=== PATIENT | male | born 1985 | race Caucasian/White ===

== ENCOUNTER 2016-09-13 11:40 | Emergency (ER) | payer SELFPAY ==
[2016-09-13 11:50] VITALS: BP 118/62
--- NOTE | 2016-09-13 13:10 | ED ---
Medical Screening - HPI Summary HPI Summary: Patient is going into in treatment rehab for drug use at [facility]. He is here for pre-admission labs. He has not physical complaints. - History of Current Complaint Chief Complaint: EDGeneral Stated Complaint: NEEDS BLOODWORK Time Seen by Provider: 09/13/16 11:57 Associated Signs and Symptoms: Negative PMH/Surg Hx/FS Hx/Imm Hx Endocrine/Hematology History: Denies: Hx Diabetes, Hx Thyroid Disease Cardiovascular History: Denies: Hx Hypertension Respiratory History: Denies: Hx Asthma, Hx Chronic Obstructive Pulmonary Disease (COPD) GI History: Denies: Hx Ulcer Psychiatric History: Reports: Hx Substance Abuse Denies: Hx Eating Disorder - Surgical History Surgery Procedure, Year, and Place: tonsillectomy. wisdom teeth pulled - Immunization History Date of Tetanus Vaccine: 8 years ago per patient Infectious Disease History: No Infectious Disease History: Denies: Hx Clostridium Difficile, Hx Hepatitis, Hx Human Immunodeficiency Virus (HIV), Hx of Known/Suspected MRSA, Hx Shingles, Hx Tuberculosis, Traveled Outside the in Last 30 Days - Social History Occupation: Unemployed Lives: With Family Alcohol Use: None Substance Use Type: Reports: Marijuana, Prescribed Smoking Status (MU): Current Some Day Smoker Type: Cigarettes Amount Used/How Often: 1/4 ppd Cessation Counseling: Patient Advised to Stop Review of Systems All Other Systems Reviewed And Are Negative: Yes Physical Exam Triage Information Reviewed: Yes Vital Signs On Initial Exam: Initial Vitals Temp Pulse Resp BP Pulse Ox 98.4 F 63 20 118/62 100 09/13/16 11:47 09/13/16 11:47 09/13/16 11:47 09/13/16 11:47 09/13/16 11:47 Vital Signs Reviewed: Yes Appearance: Positive: Well-Appearing, No Pain Distress, Well-Nourished Skin: Positive: Warm, Skin Color Reflects Adequate Perfusion, Dry, Soft Head/Face: Positive: Normal Head/Face Inspection Eyes: Positive: EOMI, SUSIE, Conjunctiva Clear ENT: Positive: Hearing grossly normal Respiratory/Lung Sounds: Positive: Breath Sounds Present Cardiovascular: Positive: RRR Musculoskeletal: Negative: Edema Left, Edema Right Neurological: Positive: Sensory/Motor Intact, Alert, Oriented to Person Place, Time, Normal Gait Psychiatric: Positive: Affect/Mood Appropriate AVPU Assessment: Alert Diagnostics - Vital Signs Vital Signs Temp Pulse Resp BP Pulse Ox 09/13/16 11:47 98.4 F 63 20 118/62 100 - Laboratory Lab Statement: Any lab studies that have been ordered have been reviewed, and results considered in the medical decision making process. Course/Dx - Diagnoses Provider Diagnoses: Encounter for blood-drug test Discharge - Discharge Plan Condition: Stable Disposition: HOME
[2016-09-13 13:17] LABS: Hematocrit 46 % (42-52); Hemoglobin 15.5 g/dl (14.0-18.0); Mean Corpuscular HGB Conc 34 g/dl (31-36); Mean Corpuscular Hemoglobin 31 pg (27-31); Mean Corpuscular Volume 92 fL (80-94); Mean Platelet Volume 9 um3 (7.4-10.4); Red Cell Distribution Width 14 % (10.5-15)
[2016-09-13 13:29] LABS: Albumin 4.4 g/dL (3.2-5.2); Calcium 8.9 mg/dL (8.6-10.3); EGFR African American 125.1 (>60); EGFR Non-African American 97.3 (>60); Globulin 2.5 g/dL (2-4); Potassium 3.9 mmol/L (3.5-5.0); Total Bilirubin 0.5 mg/dL (0.2-1.0); Total Protein 6.9 g/dL (6.4-8.9)
== END 2016-09-13 13:55 | disposition home or self-care (01) ==
LOC: ED 11:40
DX: Z04.8 Encounter for examination and observation for other specified reasons (principal); Z72.0 Tobacco use
CPT/HCPCS: 36415; 80053; 85025; 93005; 99281

== ENCOUNTER 2016-10-02 08:03 | Inpatient (IN) | payer OTHER ==
[2016-10-02] MEDS ORDERED: NS 0.9% 1000 ML* 2,000 ML IV ONE (08:28)
--- NOTE | 2016-10-02 08:34 | ED ---
Abdominal Pain/Male - HPI Summary HPI Summary: Patient presents with 3-4 days of epigastric pain that began without known cause. The pain began while he was at work and has not subsided. It is a sharp ache in the epigastric region that does not radiate into his jaw or back. The pain is made worse by eating and laying flat. Eating does not worsen or improve the pain, but sitting up hurts less. He went through rehab a month ago and says he has been sober and clean since that time, only smoking marijuana two nights ago. He denies fever, chills, headache, N/V/D, CP, SOB or back pain. No lightheadedness or sweating. He has not slept for four days "due to his discomfort". He admits to a history of anxiety. He feels shaky and like he is twitching all the time, all over his body. - History of Current Complaint Chief Complaint: EDAbdIlan Stated Complaint: FEVER,POSSIBLE FLU Time Seen by Provider: 10/02/16 08:12 Hx Obtained From: Patient Onset/Duration: Gradual Onset Timing: Constant Severity Initially: Moderate Severity Currently: Severe Pain Intensity: 0 Location: Epigastric Radiates: No Character: Sharp Aggravating Factor(s): Other: - laying flat Alleviating Factor(s): Position - sitting up Associated Signs And Symptoms: Positive: Negative - Allergies/Home Medications Allergies/Adverse Reactions: Allergies Allergy/AdvReac Type Severity Reaction Status Date / Time No Known Allergies Allergy Verified 10/28/13 12:20 PMH/Surg Hx/FS Hx/Imm Hx Endocrine/Hematology History: Denies: Hx Diabetes, Hx Thyroid Disease Cardiovascular History: Denies: Hx Hypertension Respiratory History: Denies: Hx Asthma, Hx Chronic Obstructive Pulmonary Disease (COPD) GI History: Denies: Hx Ulcer Psychiatric History: Reports: Hx Substance Abuse Denies: Hx Eating Disorder - Surgical History Surgery Procedure, Year, and Place: tonsillectomy. wisdom teeth pulled - Immunization History Date of Tetanus Vaccine: 8 years ago per patient Infectious Disease History: No Infectious Disease History: Denies: Hx Clostridium Difficile, Hx Hepatitis, Hx Human Immunodeficiency Virus (HIV), Hx of Known/Suspected MRSA, Hx Shingles, Hx Tuberculosis, Traveled Outside the [place] in Last 30 Days - Family History Known Family History: Positive: None - Social History Occupation: Employed Part-time Alcohol Use: None Substance Use Type: Reports: Marijuana, Prescribed Smoking Status (MU): Current Some Day Smoker Type: Cigarettes Amount Used/How Often: / ppd Cessation Counseling: Patient Advised to Stop Review of Systems Negative: Fever, Chills, Fatigue Negative: Sore Throat Negative: Chest Pain Negative: Shortness Of Breath Positive: Abdominal Pain - epigastic. Negative: Vomiting, Diarrhea, Nausea Negative: Bruising Negative: Headache, Weakness, Paresthesia Positive: Anxious All Other Systems Reviewed And Are Negative: Yes Physical Exam Triage Information Reviewed: Yes Vital Signs On Initial Exam: Initial Vitals Temp Pulse Resp BP Pulse Ox 98.2 F 125 20 136/74 98 10/02/16 08:06 10/02/16 08:06 10/02/16 08:06 10/02/16 08:06 10/02/16 08:06 Vital Signs Reviewed: Yes Appearance: Positive: Well-Appearing, Well-Nourished, Pain Distress Skin: Positive: Warm, Skin Color Reflects Adequate Perfusion, Dry, Soft, Other - numerous scabs diffusely spread across his face Head/Face: Positive: Normal Head/Face Inspection Eyes: Positive: EOMI, Conjunctiva Clear. Negative: SUSIE - bilateral pupils dialated ENT: Positive: Hearing grossly normal, Pharynx normal Neck: Positive: Supple, Nontender, No Lymphadenopathy Respiratory/Lung Sounds: Positive: Clear to Auscultation, Breath Sounds Present Cardiovascular: Positive: Tachycardia Abdomen Description: Positive: Nontender, Soft. Negative: CVA Tenderness (R), CVA Tenderness (L), Distended, Guarding Bowel Sounds: Positive: Present Musculoskeletal: Positive: Strength/ROM Intact. Negative: Edema Left, Edema Right Neurological: Positive: Sensory/Motor Intact, Alert, Oriented to Person Place, Time, NV Bundle Intact Distally, Normal Gait Psychiatric: Positive: Anxious - patient is visibly twitching on his face, with tremulous hands AVPU Assessment: Alert Diagnostics - Vital Signs Vital Signs Temp Pulse Resp BP Pulse Ox 10/02/16 08:06 98.2 F 125 20 136/74 98 - Laboratory Lab Statement: Any lab studies that have been ordered have been reviewed, and results considered in the medical decision making process. - EKG No standard instances Cardiac Rate: Tachycardia EKG Rhythm: Sinus Rhythm ST Segment: Non-Specific Ectopy: None repeat Cardiac Rate: Tachycardia EKG Rhythm: Sinus Rhythm ST Segment: Non-Specific Ectopy: None Abdominal Pain Fem Course/Dx - Course Course Of Treatment: Dr. Peters became involved in the patient's care and ultimately a N-STEMI was called. Dr. Gutierrez came to the ED to evaluate the patient and he was taken to the cardiac center medical and lab director for evaluation and treatment. - Diagnoses Differential Diagnosis/HQI/PQRI: Abdominal Aortic Aneurysm, ACS, AMI, Renal Colic, Urinary Tract Infection Provider Diagnoses: NSTEMI (non-ST elevated myocardial infarction) - Provider Notifications Instructed by Provider To: Admit As Inpatient Discharge - Discharge Plan Condition: Stable Disposition: ADMITTED TO [facility]
[2016-10-02 08:59] LABS: Hematocrit 45 % (42-52); Hemoglobin 15.3 g/dl (14.0-18.0); Mean Corpuscular HGB Conc 34 g/dl (31-36); Mean Corpuscular Hemoglobin 32 pg (27-31); Mean Corpuscular Volume 92 fL (80-94); Mean Platelet Volume 8 um3 (7.4-10.4); Red Blood Count 4.86 10^6/ul (4.0-5.4); Red Cell Distribution Width 14 % (10.5-15); White Blood Count 10.8 10^3/ul (3.5-10.8)
[2016-10-02 09:15] LABS: ALT 18 U/L (7-52); AST 46 U/L (13-39); Albumin 4.3 g/dL (3.2-5.2); Alkaline Phosphatase 63 U/L (34-104); Amylase 17 U/L (29-103); Anion Gap 7 mmol/L (2-11); BUN/Creatinine Ratio 9.1 (8-20); Blood Urea Nitrogen 7 mg/dL (6-24); C Reactive Protein 23.51 mg/L (< 5.00); CO2 Carbon Dioxide 26 mmol/L (22-32); Calcium 9.3 mg/dL (8.6-10.3); Chloride 106 mmol/L (101-111); Creatine Kinase 746 U/L (10-223); EGFR African American 153.6 (>60); EGFR Non-African American 119.4 (>60); Globulin 2.6 g/dL (2-4); Glucose 122 mg/dL (70-100); Lipase < 10 U/L (11.0-82.0); Potassium 3.9 mmol/L (3.5-5.0); Sodium 139 mmol/L (133-145); Total Protein 6.9 g/dL (6.4-8.9)
[2016-10-02 09:18] LABS: Troponin I 5.69 ng/mL (<0.04)
[2016-10-02] MEDS ORDERED: Heparin for STEMI(*) 5,000 UNITS/ML 1 ML VIAL IV ONE ×2 (09:38→09:39)
[2016-10-02] MEDS ORDERED: Nitroglycerin TAB 0.4 MG* 0.4 MG TAB ONE (09:38)
[2016-10-02] MEDS ORDERED: Aspirin TAB* 325 MG PO ONE (09:38)
[2016-10-02] MEDS ORDERED: Aspirin Low Dose CHEW TAB* 81 MG ONE (09:38)
[2016-10-02] MEDS ORDERED: nitroGLYCERIN DRIP* 0 ML ONE (09:39)
[2016-10-02] MEDS ORDERED: Midazolam* 1 MG/ML 5 ML VIAL (5 MG) ONE (09:43)
[2016-10-02] MEDS ORDERED: fentaNYL* 50 MCG/ML 2 ML VIAL (100 MCG VIAL) ONE (09:43)
[2016-10-02] MEDS ORDERED: Heparin 2 UNITS/ML IVPREMIX* 2,000 ML IV ONE (09:44)
[2016-10-02] MEDS ORDERED: Iohexol 350 (CONTRAST) 200 ML MDV IV ONE (09:44)
[2016-10-02] MEDS ORDERED: nitroGLYCERIN DRIP* 250 ML ONE (09:44)
[2016-10-02] MEDS ORDERED: Lidocaine 1% INJ* 10 MG/ML 30 ML SDV ONE (09:44)
[2016-10-02 10:19] LABS: Benzodiazepine Urine Screen None Detected (None Detect)
[2016-10-02 10:21] LABS: LDL Cholesterol Direct 71 mg/dL
[2016-10-02] MEDS ORDERED: NS 0.9% 1000 ML* 1,000 ML IV SCH (11:00)
[2016-10-02] MEDS ORDERED: Acetaminophen TAB* 325 MG PO PRN (13:59)
[2016-10-02] MEDS ORDERED: Ibuprofen TAB* 600 MG PO PRN (14:01)
[2016-10-02] MEDS ORDERED: Ondansetron INJ* 2 MG/ML VIAL IV PRN (14:27)
[2016-10-02] MEDS: Pantoprazole IV* 40 MG IV SCH (14:52)
[2016-10-02 14:54] LABS: Urine Bilirubin Negative (Negative); Urine Glucose Negative (Negative); Urine Nitrite Negative (Negative)
--- NOTE | 2016-10-02 14:59 | ECHO ---
Patient: TOMEKA MILLER [facility] Rec#: [id number] : 1985 Date: 10/02/2016 Age: 31y Height: 170.18 cm / 67.0 in Weight: 72.57 kg / 159.9 lbs Sex: M BSA: 1.84 Room#: [facility]9 Admit Date#: 10/02/2016 Referring: Mohinder Patino MD Reading: Endy Renee MD Ornamenter: Catherine Burroughs [facility] Ornamenter: Lynda Wong Transthoracic Echocardiogram Indication: STEMI BP: 124/79 HR: 90 Rhythm: NSR Findings History: STEMI 10/02/16. Technical Comments: The study is technically limited due to poor acoustic windows. Completed at 1345. Left Ventricle: The left ventricular chamber size is normal. Global left ventricular wall motion and contractility are within normal limits. Left ventricular systolic function is at the lower limits of normal. The estimated ejection fraction is 50-55%. There is no consistent Doppler evidence of clinically significant diastolic dysfunction. Left Atrium: The left atrial chamber size is normal. Right Ventricle: Moderator Band present. The right ventricular cavity size is normal. The right ventricular global systolic function is low normal. Right Atrium: The right atrial cavity size is normal. Aortic Valve: The aortic valve is trileaflet. There is no evidence of aortic regurgitation. There is no evidence of aortic stenosis. Mitral Valve: The mitral valve leaflets appear normal. There is no evidence of mitral regurgitation. There is no evidence of mitral stenosis. Tricuspid Valve: The tricuspid valve leaflets are normal. There is a physiologic tricuspid regurgitation. Unable to estimate the right ventricular systolic pressure. Pulmonic Valve: The pulmonic valve appears normal. There is no evidence of pulmonic regurgitation. There is no pulmonic stenosis. Pericardium: There is no significant pericardial effusion. Aorta: There is no dilatation of the ascending aorta. There is no dilatation of the aortic arch. There is no dilation of the aortic root. Pulmonary Artery: The main pulmonary artery appears normal. Venous: The inferior vena cava appears normal in size. There is a greater than 50% respiratory change in the inferior vena cava dimension. Conclusions Left ventricular systolic function is at the lower limits of normal. The estimated ejection fraction is 50-55%. The right ventricular global systolic function is low normal. There is no evidence of aortic regurgitation. There is no evidence of mitral regurgitation. There is a physiologic tricuspid regurgitation. Unable to estimate the right ventricular systolic pressure. There is no significant pericardial effusion. Measurements Name Value Normal Range RVIDd (AP) 2D 1.7 cm (0.9 - 2.6) RVDdMajor (2D) 2.8 cm (2.2 - 4.4) RAd ISD 4CH 4.4 cm (3.4 - 4.9) RA (A4C)W 3.6 cm (2.9 - 4.6) IVSd (2D) 0.9 cm (0.6 - 1) LVPWd (2D) 0.7 cm (0.6 - 1) LVIDd (2D) 4.7 cm (3.6 - 5.4) LVIDs (2D) 3.8 cm - LV FS (2D) 19 % (25 - 45) Aortic Annulus 2.1 cm (1.4 - 2.6) Ao root diameter (2D) 3.1 cm (2.1 - 3.5) Ascending Ao 2.4 cm (2.1 - 3.4) Aortic arch 1.9 cm (1.8 - 3.4) LA dimension (AP) 2D 2.4 cm (2.3 - 3.8) LAd ISD 4CH 4.4 cm (2.9 - 5.3) LA ISD 4CH W 3.9 cm (2.5 - 4.5) Name Value Normal Range LA ESV SP 4CH (A/L) 37 ml - LA ESV SP 2CH (A/L) 34 ml - LA ESV BP (A/L) 37 ml - LA ESV BP (A/L) index 20.02 ml/m2 - LA ESV SP 4CH (MOD) 33 ml - LA ESV SP 2CH (MOD) 33 ml - Name Value Normal Range MV E-wave Vmax 0.9 m/sec - MV deceleration time 178 msec - MV A-wave Vmax 0.5 m/sec - MV E:A ratio 2 ratio - LV septal e' Vmax 0.07 m/sec - LV lateral e' Vmax 0.18 m/sec - LV E:e' septal ratio 12.9 ratio - LV E:e' lateral ratio 5 ratio - Name Value Normal Range AV Vmax 1.5 m/sec - AV VTI 26 cm - AV peak gradient 8.8 mmHg - AV mean gradient 4.98 mmHg - LVOT Vmax 1.3 m/sec - LVOT VTI 21 cm - LVOT peak gradient 6.95 mmHg - LVOT mean gradient 3.56 mmHg - AVELINA Vmax 0.85 m/sec - Name Value Normal Range IVC diameter 0.85 cm - Name Value Normal Range PV Vmax 1 m/sec - PV peak gradient 4.14 mmHg -
[2016-10-02 15:25] LABS: Troponin I 4.51 ng/mL (<0.04)
[2016-10-02] MEDS ORDERED: ALPRAZolam TAB* 0.5 MG PO PRN (16:24)
--- NOTE | 2016-10-02 17:58 | RAD ---
INDICATION: Abdominal pain and constipation. COMPARISON: There are no prior studies available for comparison. TECHNIQUE: Frontal supine films of the abdomen were obtained. FINDINGS: The small bowel and colon appear nondistended. There is a moderate amount of retained stool present. No significant abnormal calcifications are seen. IMPRESSION: NO EVIDENCE FOR OBSTRUCTION, MODERATE AMOUNT RETAINED STOOL.
[2016-10-02] MEDS: Acetaminophen TAB* 325 MG PO PRN (18:28)
[2016-10-02] MEDS: Nicotine PATCH 14 MG/24 HR* PATCH TRANSDERM SCH (18:32)
[2016-10-02] MEDS ORDERED: Polyethylene Glycol 3350* 17 GM PACKET PO PRN (19:16)
[2016-10-02] MEDS ORDERED: Docusate CAP* 100 MG PO ONE (19:16)
[2016-10-02] MEDS ORDERED: Senna TAB PO PRN (19:16)
[2016-10-02] MEDS: NS 0.9% 1000 ML* 1,000 ML IV SCH (19:28)
[2016-10-02] MEDS ORDERED: oxyCODONE TAB* 5 MG TAB ONE (19:39)
[2016-10-02] MEDS: Nicotine Patch Removal NOTE PATCH OFF SCH (20:51)
--- NOTE | 2016-10-02 21:55 | CONS ---
CARDIOLOGY CONSULTATION REPORT: DATE OF SERVICE: 10/02/16 INDICATION FOR CONSULT: Asked by Dr. Peters in the emergency room to see the patient for a STEMI alert call. HISTORY OF PRESENT ILLNESS: The patient is a 31-year-old gentleman with no prior known cardiac history. Specifically denies any history of myocardial infarction, congestive heart failure, significant heart rhythm disturbance. On getting a history from him, he states that back last Sunday he was sitting at home and developed epigastric discomfort that was sharp like a knife that was present the whole time associated with some nauseousness and he vomited. If he tried to eat any solid food, he would vomit. He stated he could drink liquid, but he only sipped it all weekend long. This discomfort stayed with him all weekend long. He said he had fevers on and off to as high as the mid 101 range. They would come and go. Because the symptoms continued and worsened on the day of admission, he presented to the emergency room at [facility]. He was seen in the emergency room by Dr. Peters. The patient came to the emergency room at 8:03 by car. During the course in the emergency room, he was examined and an EKG was performed. Once his laboratory results came back, a STEMI alert was called. This was well after 10 a.m. His cardiac enzymes had revealed a total creatinine of 746 with a troponin of 5.69, no CPK-MB was drawn at that time. STEMI alert was called as he was concerned about the mild ST elevation in I and aVL. He marked on an EKG reciprocal changes in lead III. I was asked to see him emergently. When I saw him, he was still having active symptoms, he described at 7/10. He had the epigastric discomfort without significant radiation up to the throat or to the arms or to the back. He was not diaphoretic. The risks and benefits of cardiac catheterization were explained to him. Given the fact he had still ongoing symptoms with elevated cardiac enzyme sets on an EKG that showed subtly in I and aVL, J-point elevation was present although there appeared to be concave upward ST segment. He understood the risks and benefits and wished to proceed. PAST MEDICAL HISTORY: He has no significant past medical history. He denies taking medications for any routine illnesses. He does have a history of illicit drug usage, but states that he has not used anything more than marijuana for over a month. REVIEW OF SYSTEMS: Pertinent to continue, he denied any significant hematochezia, hematemesis, hematuria. He denied any stroke or TIA-like symptoms. He denied any history of kidney failure. He denied any dye allergy. PHYSICAL EXAM: When I saw him in the emergency room revealed vital signs, blood pressure in the 130/74, pulse was in the 110 to 120s, respirations 20, O2 saturation 98% on room air. Neck was supple. I could not appreciate increased JVP. Carotids had good upstroke and volume without bruits. Conjunctivae were pink. Sclerae were clear. Mouth revealed moist mucosa. Lungs revealed no accessory muscle usage. There was good excursion. Lungs were clear to A and P. Heart revealed no visible heaves, no palpable heaves or thrills. Normal S1, S2. Tachycardic rate was noted. No significant systolic or diastolic murmur. No significant rub appreciated. Abdomen was soft, nontender. Extremities were without edema. Peripheral pulses are intact. Neurology: The patient alert, oriented with normal mentation. Musculoskeletal: The patient moved all extremities appropriate. Psychological: The patient with appropriate anxiousness. IMAGING: Review of EKG from the emergency room dated 10/02/16, timed 8:27, revealed sinus tachycardia, heart rate 104, MO interval is 0.13, QRS is 0.08, QT 0.35, axis is -34 degrees. There was minimal J-point elevation in I and aVL. Repeat EKG, timed 8:29, showed similar findings with T-wave inversion in lead III, which was present on prior EKG. Third EKG showed similar findings. OVERALL ASSESSMENT: Wade presents with symptoms that are somewhat atypical sounding in nature with ongoing continued chest discomfort and abnormal cardiac enzymes. His EKG is subtle at best for an acute ST segment elevation, myocardial infarction. At this point in time, we will proceed to cardiac catheterization to rule out the presence of significant coronary artery disease , so at least to eliminate that given the markedly abnormal cardiac enzymes. Given the fact that these symptoms actually started back on Sunday, we do not even know if the enzymes were higher back then. We will adjust management pending results of the cardiac catheterization. He already received aspirin. I will not give him a secondary antiplatelet agent at this time, he did already receive 4000 units of heparin. [id number]/[facility] #: [id number] MTDD
--- NOTE | 2016-10-02 23:10 | CONS ---
CARDIOLOGY CONSULT NOTE: DATE OF CONSULT/DICTATION: 10/02/16 REASON FOR THE CONSULT: Asked by Dr. Peters in the emergency room to assess the patient for STEMI with minimal ST elevation in I and aVL with markedly abnormal cardiac enzymes. HISTORY OF PRESENT ILLNESS: The patient is a 31-year-old gentleman with no prior known cardiac history. Specifically, he denies any history of myocardial infarction, congestive heart failure, or significant heart rhythm disturbance. The patient states that starting last Sunday while just sitting around at home, he developed the onset of epigastric discomfort, sharp in nature. He got nauseous with this and got a dry mouth as well. He started having stomach aching with this and vomited once. From Sunday on until Sunday, now he continued to have the symptom. He states he did not eat any solid food because he was afraid he would vomit it up. He said that he had been able to drink fluid, albeit sipping it slowly. He had no specific shortness of breath with the symptom. He had no specific diaphoresis. He feels that it was worse when he was lying down, better when he was sitting up. He felt also that if he moves around, he thought he made it worse as well. The patient went to the emergency room and in the emergency room, he was being worked up and an initial EKG was performed, but there was no acute urgency when it was reviewed initially by Dr. Peters. Once his blood tests came back revealing a total CPK of 746 and a troponin of 5.69, he called a STEMI alert. Of note, he also had a B-natriuretic peptide of 65 and a lactic acid of 1.4. I was asked to see him emergently and after reviewing the risks and benefits with him, I explained that I was not sure that he had any significant coronary artery disease, but in order to rule this out and move forward given these abnormal values and the continued symptoms and on the subtle, but present, mild ST segment elevation in I and aVL, we would proceed to the cardiovascular laboratory. The risks and benefits were explained and he understood and wished to proceed. PAST MEDICAL HISTORY: No significant medical problems and he takes medicines on a routine basis. SOCIAL HISTORY: He has used illicit drugs before, but states he has not used anything worse than marijuana for at least a month. REVIEW OF SYSTEMS: Pertinent to proceeding to the cardiovascular laboratory emergently, he denies any hematemesis, hematochezia, or hematuria. He denies any stroke or TIA. He denies any renal insufficiency or any allergy to contrast dye. PHYSICAL EXAMINATION: When I saw him revealed a gentleman in distress. Vital signs revealed blood pressure 136/74, pulse within the 110 to 120 range, respirations 20, O2 saturation 98% on room air, afebrile. Neck was supple. No increased JVP. Carotid with good upstroke and volume without bruits. Conjunctivae were pink. Sclerae were clear. Mouth revealed moist mucosa. Lungs revealed no accessory muscle usage. There was good excursion. Lungs were clear. No active rales, rhonchi, or wheezes. Heart revealed no visible heaves. No palpable heaves or thrills. Normal S1, S2 with no S3, S4, or gallop. No significant systolic or diastolic murmur appreciated. Abdomen was soft. I did not appreciate any significant tenderness. Extremities were without edema. Peripheral pulses were intact. Neuro: The patient alert and oriented with normal mentation. Musculoskeletal: The patient moves all extremities appropriately. Psychological: The patient with normal affect. DIAGNOSTIC STUDIES/LAB DATA: That are available thus far revealed a hemoglobin and hematocrit of 15.3 and 45 with a platelet count of 208,000. Chemistries showed a sodium of 139, potassium 3.9, BUN and creatinine of 7 and 0.7, glucose 122, SGOT of 46, total CPK 476, troponin of 5.69. B-natriuretic peptide of 65. OVERALL ASSESSMENT: Mr. Guzman presents now with epigastric discomfort without significant radiation with grossly abnormal enzymes with an EKG that has some mild ST segment elevation in I and aVL. At this point in time, I believe more importantly to rule out the potential for coronary artery disease, we will proceed to the cardiovascular laboratory and perform cardiac catheterization and adjust further management pending the results. We will plan afterwards to get an echocardiogram as well to look for pericardial effusion or anything that could suggest pericarditis. We also have to consider perhaps abdominal pathology pending cardiac evaluation. Thank you very much for asking me to consult with him. We will follow him along with you. [id number]/[facility] #: [id number] TANVI
--- NOTE | 2016-10-02 23:10 | HP ---
HISTORY AND PHYSICAL: DATE OF ADMISSION: 10/02/16 CHIEF COMPLAINT: Epigastric pain. HISTORY OF PRESENT ILLNESS: Mr. Guzman is a 31-year-old man, no past medical history, who presents to the hospital after he has had ongoing abdominal pain, joint pain, and fever. The patient's symptoms started 3 days ago. He states he was standing in his kitchen in his usual state of health. He suddenly felt his mouth was very dry and had acute-onset epigastric pain that he described as stabbing pain and then an episode of emesis that was mostly liquid. He states he has continued to feel unwell into the next day, which was Sunday. At this point, he states he developed diffuse cramping throughout his body and his joints began to hurt. He states all his joints were involved. He did not notice any redness or swelling of the joints; they were just tender. He had difficulty sleeping. On Sunday, he tried smoking some marijuana to alleviate his symptoms; however, he states that it does not help at all. He also stated the marijuana made him feel funny and this was his first marijuana he had received from a new dealer. His symptoms continued into Sunday and then overnight, he could not sleep. He felt that his epigastric pain was worsening and he decided to come to the hospital for further evaluation. He had not taken any medications at home. He states his last good bowel movement was on . He has been having decreased p.o. intake over the past few days. Denies any shortness of breath. Denies any rash, sick contacts, or recent travel. He states that he has had a somewhat similar episode 2 years ago when he was hospitalized in [place]. He states the abdominal pain was in the different area; however, he states he was hospitalized for a week and they were unable to determine exactly what the cause of his symptoms was. The patient denies any alcohol use aside from the marijuana on Sunday. He denies any drug use at all despite telling him that he had a positive urine opiate and urine amphetamine screen. It is unclear if he received medications here in the hospital prior to his drug screen; however, he had not received any drugs with amphetamine in it. In the emergency department, the patient was found to have an elevated troponin of 5.69. His EKG showed some possible ST changes, so STEMI alert was called and Dr. Patino took the patient to the laboratory courier where he found no coronary artery disease. He states that he had a left dominant system but did notice some mildly hypokinetic LV. After the cath, the patient was transferred to the ICU and hospitalist service was asked to admit the patient. PAST MEDICAL HISTORY: None. PAST SURGICAL HISTORY: Tonsillectomy, wisdom teeth removal. HOME MEDICATIONS: None. ALLERGIES: The patient reports no known drug allergies. FAMILY HISTORY: Significant for father with COPD and maternal grandfather with COPD, and brother with gallbladder disease. SOCIAL HISTORY: The patient has smoked a quarter pack a day for the past 12 years. Denies any alcohol use. Reports occasional marijuana use. Denies cocaine, heroin, or amphetamine abuse. REVIEW OF SYSTEMS: A 12-point review of systems is negative but except that is noted in the HPI. PHYSICAL EXAMINATION GENERAL: The patient is a young man, lying in bed, asleep. VITAL SIGNS: On admission, temperature 98.2, heart rate of 125, respiratory rate of 20, O2 saturation 98% on room air, blood pressure 136/74. HEENT: Pupils are equal, round, and reactive to light and accommodation. Dry mucous membranes. Anicteric sclerae. LUNGS: Clear to auscultation bilaterally. No wheezes, rales, or rhonchi. CARDIOVASCULAR: Tachycardic, regular rhythm. No murmurs, gallops, and rubs. ABDOMEN: Soft, tender to palpation in the epigastric and left lower quadrants. Bowel sounds are positive. No rebound or guarding. EXTREMITIES: No cyanosis, clubbing, or edema. I do not appreciate any joint erythema or swelling; however, the patient does state diffuse pain in the toes, ankles, knees, wrists, and hands. NEURO: The patient is alert and oriented x3. No focal neurological deficits; however, he does have a mild tremor with his outstretched hands. LABORATORY DATA: White blood cell count of 10.8, hematocrit of 45, platelets of 208. INR 0.95. D-dimer less than 200, PTT of 108.7. Sodium of 139, potassium 3.9, chloride of 106, carbon dioxide 26, BUN of 7, creatinine 0.77, glucose of 122, lactic acid of 1.2. AST of 46, ALT of 18, alk phos of 63. CK of 746, CK-MB of 85. Troponin of 5.69. CRP of 23.5. Lipase less than 10, amylase 17. LDL 71. U-tox positive for opiates, amphetamines, and cannabinoids. ASSESSMENT AND PLAN: Epigastric pain, diffuse joint pains, and isolated fever with positive urine toxicology in a 31-year-old man with no past medical history , found to have an elevated troponin but a post catheterization with clean coronaries. 1. Troponin elevation. Appreciate Cardiology's assistance. Dr. Patino took the patient to the laboratory courier that showed no coronary artery disease. He noticed that it seemed that the left ventricle was mildly hypokinetic. We will continue to trend the patient's troponin until they are trending down. It is possible the patient could have some sort of a viral infection that may have caused cardiac myositis. He do not seem to have a bacterial infection. We will check blood cultures. White blood cell count is 8. An echocardiogram has been done, it is pending a read. 2. Epigastric pain. Again, the patient denies any alcohol or drug use aside from the marijuana. It seems like for the part some of his symptoms began prior to his marijuana ingestion; however, there is possibility that it could have been laced with some other substance that has caused worsening or new symptoms. The patient states he has not had a bowel movement in almost 4 days. We will get an abdominal x-ray to evaluate for any evidence of obstruction. I will start a PPI in case some of the patient's pain is due to gastritis. We will try the patient on a diet to see if he tolerates it. We will write for an IV Zofran p.r.n. 3. Diffuse joint pains. Unclear etiology. CRP is mildly elevated at 23. We will continue to trend this for now. His ESR is normal. There is no swelling or erythema of the joints. This may be also secondary to a viral infection, seems unlikely to be an inflammatory polyarthritis with his relatively low inflammatory markers. We will write for some p.r.n. Tylenol. 4. Tachycardia. We will continue IV fluids for now. The patient appears dry on exam. This could possibly be from substance withdrawal, although again the patient denies any drug use. His urine tox says otherwise. We will consider administration of possible benzodiazepines if the patient's tachycardia and tremor persist. 5. DVT prophylaxis. Ambulate, the patient is low risk. TIME SPENT: Total time spent on this admission 55 minutes, with over half the time spent [id number] with the patient in counseling and coordinating care. [id number]/[facility] #: [id number] TNAVI
[2016-10-03] MEDS: oxyCODONE TAB* 5 MG TAB PO PRN ×5 (00:43→19:24)
[2016-10-03] MEDS: NS 0.9% 1000 ML* 1,000 ML IV SCH ×3 (03:12→19:24)
--- NOTE | 2016-10-03 04:54 | CATH ---
CARDIAC CATHETERIZATION: DATE OF PROCEDURE: 10/02/16 - ROOM #ICU-09 INDICATIONS FOR PROCEDURE: Called for STEMI alert by Dr. Peters in the emergency room with minimal ST segment elevation in I and aVL with markedly abnormal cardiac enzymes and ongoing chest discomfort, assess for the presence or absence of coronary artery disease. PROCEDURE: Coronary arteriography, left heart catheterization, left ventriculography. DESCRIPTION OF PROCEDURE: The patient was interviewed and examined in the emergency room where the risks and benefits were explained. He understood them and wished to proceed. He was brought to the cardiovascular laboratory where a formal time-out was performed. The patient was prepped and draped in a sterile fashion. The right groin area was anesthetized with 1% lidocaine. Attempts were made to cannulate the right femoral artery and were unsuccessful as multiple sticks appeared to find the femoral vein. The right side was aborted. The left side was anesthetized with 1% lidocaine. The left femoral artery was cannulated utilizing an anterior stick and a 5-Lao introducer was placed. Coronary arteriography was performed using a 5-Lao 4 Hannah left coronary catheter and a 5-Lao 4 Hannah right coronary catheter. Central aortic pressure was recorded using an angled pigtail catheter vessel in the ascending aorta. The catheter was then passed across the aortic valve into the left ventricle, where left ventricular pressure was recorded. Left ventriculography was performed utilizing a total of 24 cc of Omnipaque dye at a rate of 12 cc per second. The catheter was then pulled back across the aortic valve to recheck gradient. At the end of the case, an injection was made into the right femoral sheath to assess eligibility to utilize a closure device. It was found to be acceptable for this and as such, a 5-Lao Mynx closure device was deployed with good hemostasis. The total contrast used was 65 cc of Omnipaque dye. The radiation exposure included 3.5 minutes of fluoro time. The air kerma radiation was 382 mGy. The DAPA radiation was 2389 microgray per meter squared. RESULTS: HEMODYNAMIC DATA: Left heart catheterization - central aortic pressure recorded at 103/74 with a mean of 90, left ventricular pressure 108 over left ventricular end- diastolic pressure of 10. LEFT VENTRICULOGRAPHY: Performed in the BARAJAS projection revealed mild hypokinesis of the apical region with preservation of the rest of the ventricle. A post beat did show appropriate augmentation of all areas. The overall ejection fraction on a normal beat appeared to be a proximally 50% to 55%. CORONARY ARTERIOGRAPHY: A. Left coronary artery: 1. Left main: There was no significant lesion seen throughout the course of the left main artery. 2. Left anterior descending artery: The left anterior descending artery traversed to the apical region. Its caliber clearly thinned out as it coursed in the mid to distal segment. It supplied a moderate size high first diagonal branch and a smaller size mid diagonal branch and several smaller size distal diagonal branches. There were no significant disease seen throughout the course of the vessel. 3. Circumflex artery - a dominant vessel supplying multiple obtuse marginal branches and ending in the left-sided posterior descending artery. There were no significant lesion seen throughout the course of the circumflex. Of note, the circumflex obtuse marginal branches appear several of them appeared to be small in caliber. B. Right coronary artery: A small caliber nondominant right coronary artery which supplied acute marginal branches to the RV surface, other than the caliber being small, there was no focal critical stenosis. OVERALL ASSESSMENT: Small caliber branch vessels as described above with no significant stenotic coronary artery disease identified. Low normal left ventricular systolic function with question of mild apical hypokinesis. Normal left ventricular end- diastolic pressure noted. This information will be shared with the hospitalist who will be further working up atypical chest discomfort, abnormal cardiac enzymes. We will get an echocardiogram to look for pericardial effusion for the possibility of pericarditis per the description of the chest discomfort and make further recommendations. [id number]/[facility] #: [id number] TANVI
[2016-10-03] MEDS: ALPRAZolam TAB* 0.5 MG PO PRN ×3 (05:34→17:43)
[2016-10-03 06:04] LABS: Hematocrit 41 % (42-52); Hemoglobin 13.8 g/dl (14.0-18.0); Mean Corpuscular HGB Conc 34 g/dl (31-36); Mean Corpuscular Hemoglobin 31 pg (27-31); Mean Corpuscular Volume 92 fL (80-94); Mean Platelet Volume 8 um3 (7.4-10.4); Red Blood Count 4.38 10^6/ul (4.0-5.4); Red Cell Distribution Width 14 % (10.5-15); White Blood Count 7.5 10^3/ul (3.5-10.8)
[2016-10-03 06:15] LABS: Albumin 3.6 g/dL (3.2-5.2); BUN/Creatinine Ratio 8.8 (8-20); C Reactive Protein 13.48 mg/L (< 5.00); Calcium 8.4 mg/dL (8.6-10.3); EGFR African American 177.3 (>60); EGFR Non-African American 137.9 (>60); Globulin 2.3 g/dL (2-4); HDL Cholesterol 52.6 mg/dL; Potassium 3.9 mmol/L (3.5-5.0); Total Bilirubin 0.6 mg/dL (0.2-1.0); Total Protein 5.9 g/dL (6.4-8.9)
[2016-10-03] MEDS: Acetaminophen TAB* 325 MG PO PRN (08:57)
[2016-10-03] MEDS: Nicotine PATCH 14 MG/24 HR* PATCH TRANSDERM SCH (08:58)
[2016-10-03] MEDS: Pantoprazole IV* 40 MG IV SCH (14:40)
--- NOTE | 2016-10-03 17:14 | PN ---
Subjective Date of Service: 10/03/16 Interval History: HOSPITALIST PROGRESS NOTE Patient seen and examined at bedside. He feels better today. Still has some tremors, epigastric discomfort is less intense. Family History: Unchanged from Admission Social History: Unchanged from Admission Past Medical History: Unchanged from Admission Objective Active Medications: Acetaminophen (Tylenol Tab*) 650 mg PO Q6H PRN PRN Reason: Pain/fever Last Admin: 10/03/16 08:57 Dose: 650 mg Alprazolam (Xanax Tab*) 0.5 mg PO Q6H PRN PRN Reason: ANXIETY Last Admin: 10/03/16 11:36 Dose: 0.5 mg Sodium Chloride (Ns 0.9% 1000 Ml*) 1,000 mls @ 125 mls/hr IV PER RATE [facility] Last Admin: 10/03/16 11:17 Dose: 125 mls/hr Nicotine (Nicotine Patch 14 Mg/24 Hr*) 1 patch TRANSDERM Q24HR [facility] Last Admin: 10/03/16 08:58 Dose: 1 patch Ondansetron HCl (Zofran Inj*) 4 mg IV Q6H PRN PRN Reason: NAUSEA Last Admin: 10/02/16 15:39 Dose: 4 mg Oxycodone HCl (Roxycodone Tab*) 5 mg PO Q4H PRN PRN Reason: PAIN Last Admin: 10/03/16 14:40 Dose: 5 mg Pantoprazole Sodium (Protonix Iv*) 40 mg IV Q24H [facility] Last Admin: 10/03/16 14:40 Dose: 40 mg Pharmacy Profile Note (Nicotine Patch Removal Note*) 1 note PATCH OFF 2100 [facility] Last Admin: 10/02/16 20:51 Dose: 1 note Senna (Senokot Tab*) 1 tab PO DAILY PRN PRN Reason: CONSTIPATION Last Admin: 10/03/16 08:58 Dose: 1 tab Vital Signs 10/03/16 10/03/16 10/03/16 11:26 11:30 11:36 Temperature 97.4 F Pulse Rate 110 Respiratory 16 16 16 Rate Blood Pressure 129/74 (mmHg) O2 Sat by Pulse 99 Oximetry Oxygen Devices in Use Now: None Appearance: Young gentleman lying in bed in [facility]. Eyes: No Scleral Icterus Ears/Nose/Mouth/Throat: Mucous Membranes Moist Neck: Trachea Midline Respiratory: Symmetrical Chest Expansion and Respiratory Effort, Clear to Auscultation Cardiovascular: RRR - Normal S1 and S2 Abdominal: NL Sounds; No Tenderness; No Distention Extremities: No Edema Neurological: Alert and Oriented x 3, NL Muscle Strength and Tone Lines/Tubes/Other Access: Clean, Dry and Intact Peripheral IV Nutrition: Taking PO's Result Diagrams: 10/03/16 05:40 10/03/16 05:40 Assess/Plan/Problems-Billing Assessment: Mr. Guzman is a 31yo M with NS PMH who presented to ED with c/o epigastric pain, found to have elevated troponin, initially felt to be secondary to [place], but cath was negative. - Patient Problems (1) Epigastric abdominal pain Comment: - Patient started to feel sick 5 days ago with nausea, bodyaches, and epigastric pain. Suspect likely viral infection. - Abdome xray showed moderate amount of stool, but no obstruction. - C/o constipation today - bowel regimen. - If abdominal symptoms persist, may pursue further imaging. (2) Elevated troponin Comment: - When he started to feel sick 5 days ago, he bought marijuana from a different dealer, and it "tasted weird". - Denies any other drug use, has not taken Xanax in months, but Utox was positive for benzos, amphetamines, and marijuana. - Suspect troponin elevation, tachycardia, and tremors are likely associated with amphetamines. (3) DVT prophylaxis Comment: - Ambulation. (4) Full code status Status and Disposition: Inpatient.
[2016-10-03] MEDS: Docusate CAP* 100 MG PO SCH (22:16)
[2016-10-03] MEDS: Polyethylene Glycol 3350* 17 GM PACKET PO SCH (22:17)
[2016-10-03] MEDS: Nicotine Patch Removal NOTE PATCH OFF SCH (22:19)
[2016-10-04] MEDS: oxyCODONE TAB* 5 MG TAB PO PRN ×4 (00:36→13:40)
[2016-10-04] MEDS: ALPRAZolam TAB* 0.5 MG PO PRN ×3 (00:37→13:41)
[2016-10-04] MEDS: NS 0.9% 1000 ML* 1,000 ML IV SCH ×2 (03:32→12:02)
[2016-10-04] MEDS: Docusate CAP* 100 MG PO SCH (09:18)
[2016-10-04] MEDS: Nicotine PATCH 14 MG/24 HR* PATCH TRANSDERM SCH (09:18)
[2016-10-04] MEDS: Polyethylene Glycol 3350* 17 GM PACKET PO SCH (09:19)
--- NOTE | 2016-10-04 13:08 | PN ---
Hospitalist Progress Note . HOSPITALIST DISCHARGE NOTE: See dc instructions and summary by me. Patient stable for dc dc instructions reviewed with the patient at the bedside. DC patient home today.
[2016-10-04] MEDS: Pantoprazole IV* 40 MG IV SCH (13:41)
[2016-10-04 13:48] VITALS: BP 126/72
--- NOTE | 2016-10-07 21:13 | ED ---
I, Bro Young, scribed for Grupo Peters MD on 10/02/16 at 1124 . Progress - Progress Note Progress Note: Addedum: Was asked to see pt by Amira. Pt is a 31yo male c/o epigastric pain and chest soreness since Sunday. Pt hasnt slept since . Reports nausea with vomiting. Pt is diaphoretic and is twitching. Physical exam shows teeth in poor condition and poor hygiene. Otherwise normal exam. First EKG@0829 shows Sinus tachycardia with 104bpm, ST elevation at I and ST depression at III and aVL. Repeat EKG@0931 shows the same abnormality. Labwork shows trop of 5.69, total CK of 746. Urine toxicology positive for amphetamines, opiates, and marijuana. Called STEMI Code. Dr. Patino came to see the pt. Pt is admitted to laboratory director. Course/Dx - Diagnoses Provider Diagnoses: stemi, NSTEMI (non-ST elevated myocardial infarction) The documentation as recorded by the deepibHector solorio Benjamin accurately reflects the service I personally performed and the decisions made by me, Grupo Peters MD.
--- NOTE | 2016-10-09 05:59 | DS ---
DISCHARGE SUMMARY: DATE OF ADMISSION: 10/02/16 DATE OF DISCHARGE: 10/04/16 PRIMARY CARE PROVIDER: None. FRONT END MECHANIC PHYSICAL TESTING SUPERVISOR: Dr. Mohinder Patino. 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 SECONDARY DIAGNOSIS: None. DISCHARGE MEDICATIONS: Continue previous Xanax on a p.r.n. basis, but no prescription given for this. Counseling given to the patient regarding marijuana avoidance, though the patient has been using chronic marijuana for years. HISTORY OF PRESENT ILLNESS AND HOSPITAL COURSE: Please see the H and P by Dr. Kenneth Spencer on 10/02/16. In brief, Mr. Guzman is a 31-year-old man who came to the hospital with ongoing abdominal pain, joint pain, and fever. The symptoms were present for 3 days prior to admission. The patient's mouth felt dry and had acute- onset epigastric pain that was a stabbing sensation. He had an episode of emesis, mostly liquid. He felt unwell the following day and developed diffuse cramping throughout his body with his joints hurting. The patient came to the hospital after his symptoms continued through Sunday night. The patient tried smoking marijuana to alleviate his symptoms prior to admission and did not help at all and in fact, it made him feel worse. This was marijuana obtained from a new dealer. The patient reported a similar episode 2 years ago and he was hospitalized in [place] and there was an unremarkable workup with no explanation of his abdominal pain. There was no marijuana or other illicit drugs used. He was found to have an elevated troponin on admission of 5.[address] changes and the patient went to the manager labor relations through a STEMI alert. The patient had no occlusive disease found and was transferred rather quickly to the medical floor where he continued to defervesce. The patient had a transthoracic echocardiogram showing no focal wall motion abnormalities and his vital signs were normal and his labs were also normal. Of note, the echo-cardiogram showed normal pericardium with no pericardial effusion. There were no significant valvular problems. He had a preserved ejection fraction and it was essentially an unremarkable workup. When I met the patient on October 04, he was asymptomatic and eager for discharge. He is to follow up with Dr. Mohinder Patino on October 09 for routine post cath checks and the patient said that he would follow through with this. In terms of primary care followup, the patient does not have a primary care, but he was given the number to the physician referral center and asked to establish a primary care physician. Mr. Guzman will come back to the emergency room if he has any worsening symptoms including but not limited to chest pain, shortness of breath, lightheadedness, or any other worrisome symptoms, and he said he will comply with that instruction. TIME SPENT: Total time taken to discharge Mr. Guzman was 45 minutes, greater than half that time spent going over the discharge instructions explaining the the testing results described herein. CONDITION: Stable. CC: Dr. Patino* [id number]/[facility] #: [id number] TANVI
== END 2016-10-04 14:35 | disposition home or self-care (01) | DRG 190 ==
LOC: ED 08:03 → ICU 10:55 → MEDTELE 10-03 11:04
PROVIDERS: ADMIT Internal Medicine Cardiovascular Disease; ATTEND Internal Medicine
PROC: B2151ZZ Fluoroscopy of Left Heart using Low Osmolar Contrast (ICD-10-PCS; 2016-10-02)
PROC: 4A023N7 Measurement of Cardiac Sampling and Pressure, Left Heart, Percutaneous Approach (ICD-10-PCS; 2016-10-02)
PROC: B2111ZZ Fluoroscopy of Multiple Coronary Arteries using Low Osmolar Contrast (ICD-10-PCS; principal; 2016-10-02 10:00)
DX: I21.4 Non-ST elevation (NSTEMI) myocardial infarction (principal); Z78.1 Physical restraint status; F12.90 Cannabis use, unspecified, uncomplicated; F17.210 Nicotine dependence, cigarettes, uncomplicated; F41.9 Anxiety disorder, unspecified; K59.00 Constipation, unspecified; R79.89 Other specified abnormal findings of blood chemistry; I51.9 Heart disease, unspecified; R00.0 Tachycardia, unspecified; M25.50 Pain in unspecified joint; R10.13 Epigastric pain; F15.90 Other stimulant use, unspecified, uncomplicated; R25.1 Tremor, unspecified; Z83.79 Family history of other diseases of the digestive system; Z82.5 Family history of asthma and other chronic lower respiratory diseases
CPT/HCPCS: 36415; 74000; 80053; 80061; 80307; 81003; 82150; 82550; 82553; 83605; 83690; 83721; 83735; 83880; 84484; 85025; 85379; 85610; 85652; 85730; 86140; 87040; 87641; 93005; 93306; A9270-GY; C1887; J1644; J2001; J2250; J2405; J3010

== ENCOUNTER 2018-01-22 18:35 | Emergency (ER) | payer SELFPAY ==
[2018-01-22] MEDS ORDERED: NS 0.9% 1000 ML* 1,000 ML IV ONE ×3 (18:43)
[2018-01-22] MEDS ORDERED: Ondansetron INJ* 2 MG/ML VIAL IV ONE (18:43)
[2018-01-22 19:02] LABS: ABS Basophils 0.1 10^3/ul (0-0.2); ABS Eosinophils 0.1 10^3/ul (0-0.6); ABS Monocytes 0.8 10^3/ul (0-0.8); ABS Neutrophils 7.9 10^3/ul (1.5-7.7); ABS Nucleated RBC 0 10^3/ul; Eosinophil % 0.8 % (0-6); Hematocrit 46 % (42-52); Hemoglobin 15.9 g/dl (14.0-18.0); Lymphocyte % 25.2 % (25-47); Mean Corpuscular HGB Conc 35 g/dl (31-36); Mean Corpuscular Hemoglobin 32 pg (27-31); Mean Corpuscular Volume 92 fL (80-94); Mean Platelet Volume 7.9 um3 (7.4-10.4); Nucleated Red Blood Cells % 0; Platelet Count 268 10^3/ul (150-450); Red Blood Count 4.99 10^6/ul (4.00-5.40); Red Cell Distribution Width 13 % (10.5-15); White Blood Count 11.9 10^3/ul (3.5-10.8)
[2018-01-22 19:19] LABS: EGFR Non-African American 78.6 (>60)
[2018-01-22 20:50] LABS: Urine Appearance Clear; Urine Blood Negative (Negative); Urine Color Yellow; Urine Ketones Negative (Negative); Urine Protein 1+(30 mg/dL) (Negative); Urine Specific Gravity 1.016 (1.010-1.030); Urine Urobilinogen Negative (Negative)
--- NOTE | 2018-01-22 21:30 | ED ---
Cayden Valadez Angela, scribed for Mike Davis MD on 01/22/18 at 1849 . Syncope/Near Syncope - HPI Summary HPI Summary: This pt is a 32 y/o male presenting to [facility] via EMS after syncope today. Pt reports he works in [employer] and in [employer], usually 13 hour days. He notes for the past 2 days he has felt lightheadedness and has had vomiting and shakiness. Today he reports he passed out. Pt states that he has been trying to take in fluids but is unable to keep it down due to vomiting and feels dehydrated. Additionally he reports sunburn from working outside. Denies SOB, chest pain. Denies any drug use but states he is a current smoker. Denies any PMHx. - History Of Current Complaint Time Seen by Provider: 01/22/18 18:39 Hx Obtained From: Patient Onset/Duration: Sudden Onset, Resolved Timing: Minutes Context: Unwitnessed Aggravating Factor(s): Nothing Alleviating Factor(s): Spontaneous Resolution Associated Signs And Symptoms: Lightheadedness, Vomiting, Other - POS: decreased fluid intake, sunburn. NEG: SOB, chest pain. - Allergies/Home Medications Allergies/Adverse Reactions: Allergies Allergy/AdvReac Type Severity Reaction Status Date / Time No Known Allergies Allergy Verified 01/22/18 18:52 Home Medications: Home Medications NK [No Home Medications Reported] 01/22/18 [History Confirmed 01/22/18] PMH/Surg Hx/FS Hx/Imm Hx Endocrine/Hematology History: Denies: Hx Diabetes, Hx Thyroid Disease Cardiovascular History: Denies: Hx Hypertension Respiratory History: Denies: Hx Asthma, Hx Chronic Obstructive Pulmonary Disease (COPD) GI History: Denies: Hx Ulcer Psychiatric History: Reports: Hx Anxiety, Hx Depression, Hx Substance Abuse Denies: Hx Eating Disorder - Surgical History Surgery Procedure, Year, and Place: tonsillectomy. wisdom teeth pulled Hx Anesthesia Reactions: No - Immunization History Date of Tetanus Vaccine: 8 years ago per patient Infectious Disease History: Denies: Hx Clostridium Difficile, Hx Hepatitis, Hx Human Immunodeficiency Virus (HIV), Hx of Known/Suspected MRSA, Hx Shingles, Hx Tuberculosis, History Other Infectious Disease - Family History Known Family History: Negative: Respiratory Disease - Social History Alcohol Use: None Substance Use Type: Reports: Marijuana, Prescribed Smoking Status (MU): Current Some Day Smoker Type: Cigarettes Amount Used/How Often: 1/4 ppd Have You Smoked in the Last Year: Yes Review of Systems Constitutional: Other - dehydration Negative: Fever, Chills Negative: Shortness Of Breath Positive: Vomiting, Nausea Skin: Other - sunburn Neurological: Other - POS: lightheadedness Positive: Syncope All Other Systems Reviewed And Are Negative: Yes Physical Exam - Summary Physical Exam Summary: Appearance: Well appearing, no pain distress Skin: hot and light diaphoresis. Minor sunburn on the shoulders, back, and arms. Head/face: normal Eyes: EOMI, Pupils are midrange and reactive ENT: normal Neck: supple, non-tender Respiratory: CTA, breath sounds present Cardiovascular: Heart is tachycardic, pulses symmetrical Abdomen: non-tender, soft Bowel: present Musculoskeletal: normal, strength/ROM intact Neuro: normal, sensory motor intact, A&Ox3 Triage Information Reviewed: Yes Vital Signs On Initial Exam: Initial Vitals Temp Pulse Resp BP Pulse Ox 98.2 F 151 19 128/85 96 01/22/18 18:49 01/22/18 18:49 01/22/18 18:49 01/22/18 18:49 01/22/18 18:49 Vital Signs Reviewed: Yes Diagnostics - Vital Signs Vital Signs Temp Pulse Resp BP Pulse Ox 01/22/18 20:00 17 01/22/18 19:58 110 14 128/90 92 01/22/18 19:28 24 120/90 01/22/18 19:01 121 21 96 01/22/18 18:59 120 19 128/89 96 01/22/18 18:58 114 15 94 01/22/18 18:49 98.2 F 151 19 128/85 96 - Laboratory Lab Results: Lab Results 01/22/18 01/22/18 01/22/18 Range/Units 18:49 18:49 20:25 WBC 11.9 H (3.5-10.8) 10^3/ul RBC 4.99 (4.00-5.40) 10^6/ul Hgb 15.9 (14.0-18.0) g/dl Hct 46 (42-52) % MCV 92 (80-94) fL MCH 32 H (27-31) pg MCHC 35 (31-36) g/dl RDW 13 (10.5-15) % Plt Count 268 (150-450) 10^3/ul MPV 7.9 (7.4-10.4) um3 Neut % (Auto) 66.9 (38-83) % Lymph % (Auto) 25.2 (25-47) % [place] % (Auto) 6.5 (0-7) % Eos % (Auto) 0.8 (0-6) % Baso % (Auto) 0.6 (0-2) % Absolute Neuts (auto) 7.9 H (1.5-7.7) 10^3/ul Absolute Lymphs (auto) 3.0 (1.0-4.8) 10^3/ul Absolute Monos (auto) 0.8 (0-0.8) 10^3/ul Absolute Eos (auto) 0.1 (0-0.6) 10^3/ul Absolute Basos (auto) 0.1 (0-0.2) 10^3/ul Absolute Nucleated RBC 0 10^3/ul Nucleated RBC % 0 Sodium 139 (135-145) mmol/L Potassium 3.3 L (3.5-5.0) mmol/L Chloride 103 (101-111) mmol/L Carbon Dioxide 23 (22-32) mmol/L Anion Gap 13 H (2-11) mmol/L BUN 9 (6-24) mg/dL Creatinine 1.10 (0.67-1.17) mg/dL Est GFR ( Amer) 95.1 (>60) Est GFR (Non-Af Amer) 78.6 (>60) BUN/Creatinine Ratio 8.2 (8-20) Glucose 199 H (70-100) mg/dL Calcium 8.8 (8.6-10.3) mg/dL Total Bilirubin 0.50 (0.2-1.0) mg/dL AST 17 (13-39) U/L ALT 20 (7-52) U/L Alkaline Phosphatase 75 (34-104) U/L Total Creatine Kinase 139 (10-223) U/L Total Protein 7.0 (6.4-8.9) g/dL Albumin 4.4 (3.2-5.2) g/dL Globulin 2.6 (2-4) g/dL Albumin/Globulin Ratio 1.7 (1-3) Urine Color Yellow Urine Appearance Clear Urine pH 5.0 (5-9) Ur Specific [place] 1.016 (1.010-1.030) Urine Protein 1+(30 mg/dl) A (Negative) Urine Ketones Negative (Negative) Urine Blood Negative (Negative) Urine Nitrate Negative (Negative) Urine Bilirubin Negative (Negative) Urine Urobilinogen Negative (Negative) Ur Leukocyte Esterase Negative (Negative) Urine WBC (Auto) Trace(0-5/hpf) (Absent) Urine RBC (Auto) Absent (Absent) Urine Bacteria Absent (Absent) Hyaline Casts Present A (Absent) Urine Glucose Negative (Negative) Urine Ascorbic Acid * A (Negative) Urine Opiates Screen (None Detect) Ur Barbiturates Screen (None Detect) Ur Phencyclidine Scrn (None Detect) Ur Amphetamines Screen (None Detect) U Benzodiazepines Scrn (None Detect) Urine Cocaine Screen (None Detect) U Cannabinoids Screen (None Detect) 01/22/18 Range/Units 20:25 WBC (3.5-10.8) 10^3/ul RBC (4.00-5.40) 10^6/ul Hgb (14.0-18.0) g/dl Hct (42-52) % MCV (80-94) fL MCH (27-31) pg MCHC (31-36) g/dl RDW (10.5-15) % Plt Count (150-450) 10^3/ul MPV (7.4-10.4) um3 Neut % (Auto) (38-83) % Lymph % (Auto) (25-47) % [place] % (Auto) (0-7) % Eos % (Auto) (0-6) % Baso % (Auto) (0-2) % Absolute Neuts (auto) (1.5-7.7) 10^3/ul Absolute Lymphs (auto) (1.0-4.8) 10^3/ul Absolute Monos (auto) (0-0.8) 10^3/ul Absolute Eos (auto) (0-0.6) 10^3/ul Absolute Basos (auto) (0-0.2) 10^3/ul Absolute Nucleated RBC 10^3/ul Nucleated RBC % Sodium (135-145) mmol/L Potassium (3.5-5.0) mmol/L Chloride (101-111) mmol/L Carbon Dioxide (22-32) mmol/L Anion Gap (2-11) mmol/L BUN (6-24) mg/dL Creatinine (0.67-1.17) mg/dL Est GFR ( Amer) (>60) Est GFR (Non-Af Amer) (>60) BUN/Creatinine Ratio (8-20) Glucose (70-100) mg/dL Calcium (8.6-10.3) mg/dL Total Bilirubin (0.2-1.0) mg/dL AST (13-39) U/L ALT (7-52) U/L Alkaline Phosphatase (34-104) U/L Total Creatine Kinase (10-223) U/L Total Protein (6.4-8.9) g/dL Albumin (3.2-5.2) g/dL Globulin (2-4) g/dL Albumin/Globulin Ratio (1-3) Urine Color Urine Appearance Urine pH (5-9) Ur Specific [place] (1.010-1.030) Urine Protein (Negative) Urine Ketones (Negative) Urine Blood (Negative) Urine Nitrate (Negative) Urine Bilirubin (Negative) Urine Urobilinogen (Negative) Ur Leukocyte Esterase (Negative) Urine WBC (Auto) (Absent) Urine RBC (Auto) (Absent) Urine Bacteria (Absent) Hyaline Casts (Absent) Urine Glucose (Negative) Urine Ascorbic Acid (Negative) Urine Opiates Screen Presumptive positive A (None Detect) Ur Barbiturates Screen None detected (None Detect) Ur Phencyclidine Scrn None detected (None Detect) Ur Amphetamines Screen None detected (None Detect) U Benzodiazepines Scrn Presumptive positive A (None Detect) Urine Cocaine Screen None detected (None Detect) U Cannabinoids Screen Presumptive positive A (None Detect) Result Diagrams: 01/22/18 18:49 01/22/18 18:49 Lab Statement: Any lab studies that have been ordered have been reviewed, and results considered in the medical decision making process. - EKG 18:49 Cardiac Rate: Tachycardia - at 125 bpm EKG Rhythm: Sinus Tachycardia ST Segment: Normal EKG Interpretation: Normal axis. QTc of 481 Re-Evaluation - Re-Evaluation First Eval Re-Evaluation Time: 19:25 Comment: Heart rate is still 120. Course/Dx Course Of Treatment: Patient presents after being found poorly responsive her unresponsive by police. He is alleged to be unconscious for some time. Perhaps up to an hour. He states that he is been working a lot outside as feeling very weak and tired. He denies using any type of opiate, and reports that he has not been taking his Xanax. He recently got a sunburn and states that he works [employer]. He was normothermic on arrival and very tachycardic. His pupils are midrange. Her no track jacob present. Laboratories are all within normal limits. The patient was given 3 L of fluids and was feeling much better. His drug screen did return positive for opiates, benzos. He reports that he forgot to tell us that he took a Percocet for headache the other night. However, this seems really unlikely for heat stroke or heat syncope given that he was out for a significant amount of time. Heat exhaustion can be possible but more likely is oral ingestion of illicit substance. - Diagnoses Differential Diagnosis/HQI/PQRI: Positive: Metabolic Reaction, Other - Heat stroke, heat exhaustion, heat syncope María Elena overdose Provider Diagnoses: Heat exhaustion, Sunburn of first degree, Unresponsive episode - Critical Care Time Critical Care Time: 30-74 min - Critical care time of 35 minutes. Critical care time is exclusive of separately billable procedures. Discharge - Sign-Out/Discharge Documenting (check all that apply): Discharge/Admit/Transfer - Discharge - Discharge Plan Condition: Improved Disposition: HOME Patient Education Materials: Heat Exhaustion (ED) Referrals: Arron Bell, REYES [Nurse Practitioner] - Additional Instructions: Stay out of the heat for 3 days. Hydrate well. Seek longterm from the heat immediately after starting to feel badly while working or outside otherwise. Return if worse, new symptoms or other concerns. Tylenol as needed for body aches. - Billing Disposition and Condition Condition: IMPROVED Disposition: Home The documentation as recorded by the Cayden bruce Angela accurately reflects the service I personally performed and the decisions made by me, Mike Davis MD.
[2018-01-23 03:38] VITALS: BP 112/72
== END 2018-01-22 21:18 | disposition home or self-care (01) ==
LOC: ED 18:35
DX: T67.5XXA Heat exhaustion, unspecified, initial encounter (principal); L55.0 Sunburn of first degree; R55 Syncope and collapse; R42 Dizziness and giddiness; Z72.0 Tobacco use; X30.XXXA Exposure to excessive natural heat, initial encounter; R11.2 Nausea with vomiting, unspecified; Y92.9 Unspecified place or not applicable
CPT/HCPCS: 36415; 80053; 80307; 81003; 81015; 82550; 85025; 87086; 93005; 96360; 99284; J2405